=== PATIENT | male | born 1965 | race Caucasian/White ===

== ENCOUNTER 2022-03-26 08:18 | Outpatient (CLI) | payer BC, SELFPAY ==
[2022-03-26 14:03] LABS: Chloride* 104 mmol/L (96-114); Potassium* 4.8 mmol/L (3.6-5.1); Sodium* 140 mmol/L (135-149)
[2022-03-26 14:05] LABS: Alanine Aminotransferase* 25 U/L (4-50); Creatinine* 0.7 mg/dL (0.5-1.5); Estimated Glomerular Filt Rate 109 ml/min
[2022-03-26 14:06] LABS: Blood Urea Nitrogen* 15 mg/dL (7-30); Carbon Dioxide* 28 mmol/L (20-32); Glucose* 118 mg/dL (60-115)
[2022-03-26 14:07] LABS: Calcium* 9.5 mg/dL (8.4-10.6)
[2022-03-26 14:09] LABS: C Reactive Protein* 2.7 mg/dL (0.5-1.0)
[2022-03-26 14:34] LABS: PSA Screen* 0.99 ng/mL (0.10-4.00)
[2022-03-27 14:42] LABS: Rheumatoid Factor 10 IU/mL (0-14)
[2022-03-28 01:42] LABS: Anti-Nuclear Ab(ANA)IgG ELISA None Detected (None Detected)
== END 2022-03-26 08:19 | disposition home or self-care (01) ==
PROVIDERS: PCP Family Medicine; Visit Provider Family Medicine
DX: M25.50 Pain in unspecified joint (principal); Z12.5 Encounter for screening for malignant neoplasm of prostate
CPT/HCPCS: 80048; 84153; 84460; 86039; 86140; 86200; 86431

== ENCOUNTER 2023-09-11 11:29 | Outpatient (CLI) | payer OTHER, SELFPAY ==
--- NOTE | 2023-09-11 13:06 | W.ANESCHARGE ---
Anesthesia Charges Start Date/Time Anesthesia Start Date: 09/11/23 Anesthesia Start Time: 12:36 Stop Date/Time Anesthesia Stop Date: 09/11/23 Anesthesia Stop Time: 13:02
== END 2023-09-11 11:30 | disposition home or self-care (01) ==
LOC: OP CLINIC 11:30
PROVIDERS: PCP Family Medicine; Visit Provider Internal Medicine
DX: R19.5 Other fecal abnormalities (principal); K57.30 Diverticulosis of large intestine without perforation or abscess without bleeding
CPT/HCPCS: 00812; 45378; J2704

== ENCOUNTER 2024-10-21 08:40 | Outpatient (CLI) | payer OTHER, SELFPAY | END 2024-10-21 08:41 | disposition home or self-care (01) | PROVIDERS: PCP Family Medicine; Visit Provider Family Medicine | DX: Z12.5 Encounter for screening for malignant neoplasm of prostate (principal); Z13.6 Encounter for screening for cardiovascular disorders; Z13.9 Encounter for screening, unspecified | CPT/HCPCS: 80048; 80061; G0103 ==